=== PATIENT | female | born 1960 | race Caucasian/White ===

== ENCOUNTER → 2023-12-02 19:04 | Outpatient (REF) | payer OTHER, SELFPAY | LOC: WDC 19:04 | PROVIDERS: ATTENDING PHYSICIAN Physician Assistant | DX: Z12.31 Encounter for screening mammogram for malignant neoplasm of breast (principal) | CPT/HCPCS: 77063; 77067 ==

== ENCOUNTER 2024-01-11 09:46 | Emergency (ER) | payer OTHER, SELFPAY ==
[2024-01-11 09:50] VITALS: BP 144/92
[2024-01-11 10:49] VITALS: BP 130/82
[2024-01-11 11:00] VITALS: BP 149/91
[2024-01-11 11:43] LABS: Urine Albumin 1+ (Neg - Trace); Urine Bilirubin Negative (Negative); Urine Character Clear (Clear); Urine Color Yellow; Urine Glucose Negative (Negative); Urine Ketone 2+ (Negative); Urine Leukocyte Trace (Negative); Urine Nitrite Negative (Negative); Urine Occult Blood Negative (Negative); Urine Urobilinogen Negative (Neg - 1+)
[2024-01-11 11:44] LABS: % Basophils 0.4 % (0-2); % Eosinophils 0.3 % (0-6); % Immature Granulocytes 0.3 % (0-0.5); % Lymphocytes 13.2 % (20.5-51.1); % Monocytes 5.7 % (1.7-9.3); % Neutrophils 80.1 % (42.2-75.2); Absolute Basophils 0.1 10^3/uL (0-0.2); Absolute Lymphocytes 1.5 10^3/uL (1.2-3.4); Absolute Monocytes 0.7 10^3/uL (0.1-0.6); Absolute Neutrophils 9.4 10^3/uL (1.4-6.5); Hematocrit 43.8 % (37.0-47.0); Hemoglobin 14.9 g/dL (12.0-16.0); Mean Corpuscular Hgb 32.1 pg (27.0-31.0); Mean Corpuscular Volume 94.4 fL (81.0-99.0); Mean Platelet Volume 10.2 fL (7.4-10.4); Nucleated Red Blood Cells % 0 %; Platelet Count 224 10^3/uL (130-400); Red Blood Cell Count 4.64 10^6/uL (4.20-5.40); Red Cell Dist. Width 11.9 % (11.5-14.5); White Blood Cell Count 11.7 10^3/uL (4.8-10.8)
[2024-01-11] MEDS: BENTYL 20 MG IM (11:48)
[2024-01-11] MEDS: CITROMA 300 ML PO (11:48)
[2024-01-11 12:00] VITALS: BP 141/84
[2024-01-11 12:08] LABS: ALT (SGPT) 38 U/L (0-35); AST (SGOT) 44 U/L (14-36); Albumin 4.3 g/dl (3.5-5.0); Alkaline Phosphatase 89 U/L (38-126); Blood Urea Nitrogen 17 mg/dl (7-17); Calcium 9.7 mg/dl (8.4-10.2); Carbon Dioxide 23 mmol/L (22-30); Chloride 109 mmol/L (98-107); Glucose 98 mg/dl (70-99); Lipase 105 U/L (23-300); Potassium 3.6 mmol/L (3.5-5.1); Sodium 142 mmol/L (135-145); Total Bilirubin 0.8 mg/dl (0.2-1.3); Total Protein 6.9 g/dl (6.3-8.2); eGFR > 60.00
[2024-01-11 12:40] LABS: TSH Reflex To Free T4 1.77 uIU/ml (0.47-4.68)
[2024-01-11 12:52] LABS: Urine Mucus Many
[2024-01-11 12:53] LABS: Urine Granular Cast 0-2 /LPF (0)
[2024-01-11 12:54] LABS: Urine Red Blood Cell 0-2 /HPF (0-2); Urine White Cell 0-2 /HPF (0-5)
[2024-01-11 13:00] VITALS: BP 137/80
--- NOTE | 2024-01-11 13:08 | ED.GENMED ---
History of Present Illness
General
Chief Complaint: Bowel Problem
Source: patient and records
Exam Limitations: none
Time Seen by Provider: 01/11/24 10:56
Nursing documentation reviewed up to this point in time: agreed with
Travel History
Have you had any contact with someone who has COVID-19?: No
Do you have any symptoms of coronavirus? Fever > 100 degrees, chills, cough, shortness of breath, sore throat, loss of taste or smell, muscle aches, or headache?: No
History of Present Illness
History of Present Illness:
Patient is a 63-year-old female sent from her physician's office to the emergency department after being inadvertently found in atrial fibrillation. Patient went to him ostensibly because of a stomachache for 4 days that is getting worse and has
been constipated. Patient typically has no problems with constipation or diarrhea. Patient denies fever or chills. Patient took Dulcolax without any improvement. When the patient went to see her physician she was in atrial fibrillation with RVR.
Patient's been compliant with her anticoagulation. Patient denies chest pain, shortness of breath, lightheadedness or weakness. Patient denies any melena or hematochezia. Patient denies any symptoms.
Past History
Past History
ED Past Medical History: Arrthythmia (Atrial fibrillation), GERD, HTN, Hypercholesterolemia, IA and Other (pud)
ED Past Surgical History: None
Social History
Tobacco: Former smoker
Alcohol: Daily
Drug: None
Personal:
Living: with family
Employment: Employed
Review of Systems
Review of Systems
All Other Systems: ROS reviewed and negative except as documented in HPI and ROS
Constitutional: Reports no symptoms
EENT: Reports no symptoms
Respiratory: Reports no symptoms
Cardiac: Reports no symptoms
ABD/GI: Reports abdominal pain, constipated and anorexia; Denies nausea, vomiting or diarrhea
: Reports no symptoms
Musculoskeletal: Reports no symptoms
Skin: Reports no symptoms
Neurological: Reports no symptoms
Hematologic/Lymphatic: Reports no symptoms
Phy Exam
Physical Exam
Physical Exam:
Physical Exam
General: No apparent distress, alert and appropriate, well nourished, well hydrated
HENT: Normocephalic, supple with no lymphadenopathy, no thyromegaly
Eyes: Clear sclera, conjuctiva without injection
Heart: Regular rhythm and rate. No S3, S4. No murmur.
Lungs: No respiratory distress, no stridor, lung sounds clear and equal bilaterally
Abdomen: Soft, mild lower abdominal tenderness without guarding or rebound, no organomegaly, no CVA tenderness, BS good
Neuro: Alert and oriented x 3, CN II - XII intact, no motor focality, no cerebellar dysfunction
Skin: no rash
Psychiatric: well kept. interactive and cooperative
Extremities: No edema, cyanosis, tenderness, Good and equal peripheral pulses.
Scores
Heart Failure Risk
Heart Failure Risk Score: Not Applicable
Heart Score for Chest Pain Patients
STEMI patient?: Not applicable
Withdrawal Assessment of Alcohol
Withdrawal Assessment Completed?: Not applicable
Course
Orders/Labs/Results
Orders:
Orders
01/11/24 10:03
Electrocardiogram (*1) Urgent
Reason for Study: Atrial Fibrillation
EKG- Treatment ONCE
01/11/24 11:05
Magnesium Citrate [Citroma] 300 ml PO ONCE ONE
CR Abdomen - 1 View Urgent
Comment:
Reason For Exam: lower abd pain constipation
01/11/24 11:35
Complete Blood Count/With Diff Urgent
Comprehensive Metabolic Panel Urgent
Lipase Urgent
TSH Reflex To Free T4 Urgent
Urinalysis Reflex To Culture Urgent
Date Specimen was Collected: 01/11/24
Time Specimen was Collected: 11:34
Urine Microscopic Reflex Cult Urgent
01/11/24 11:38
Dicyclomine HCl [Bentyl] 20 mg IM NOW STA
Abnormal Lab Results
01/11/24
11:35
WBC 11.7 H 10^3/uL
(4.8-10.8)
MCH 32.1 H pg
(27.0-31.0)
Absolute Neuts (auto) 9.4 H 10^3/uL
(1.4-6.5)
Absolute Monos (auto) 0.7 H 10^3/uL
(0.1-0.6)
Neutrophils % 80.1 H %
(42.2-75.2)
Lymphocytes % 13.2 L %
(20.5-51.1)
Chloride 109 H mmol/L
(98-107)
Creatinine 0.5 L mg/dL
(0.6-1.0)
AST 44 H U/L
(14-36)
ALT 38 H U/L
(0-35)
Urine Ketones 2+ A
(Negative)
Leukocyte Esterase Rfl Trace A
(Negative)
Urine Albumin (Reflex) 1+ A
(Neg - Trace)
01/11/24 11:35
01/11/24 11:35
Vital Signs
Initial and Last Documented VS:
Initial Vital Signs
Temp Pulse Resp BP Pulse Ox
98.6 F 83 18 144/92 99
01/11/24 09:50 01/11/24 09:50 01/11/24 09:50 01/11/24 09:50 01/11/24 09:50
Last Documented Vital Signs
Temp Pulse Resp BP Pulse Ox
98.6 F 81 19 141/84 94
01/11/24 09:50 01/11/24 12:15 01/11/24 12:15 01/11/24 12:00 01/11/24 12:15
*Radiology
Radiology exam reviewed: radiology read reviewed
*Pulse Oximetry
Patient hypoxic: no
*EKG
Interpreted by ED Provider?: Yes
EKG Intrepretation Date: 01/11/24
EKG Intrepretation Time: 13:14
Interpretation: abnormal
Comparison EKG: changes noted
Heart Rate: 154
Rate: tachycardiac
Rhythm: a-fib
[place]: normal axis
Interval: normal QT interval
QRS Pattern: normal QRS
Ischemia: non-specific ST changes
*[employer]er Interpretation
Rate: normal
Interpretation: normal
Heart Rate: 85
Rhythm: sinus
*Critical Care Note
Total Time (30-74mins, 75-104mins- exclusive of procedures): Not Applicable
Update Note
Update Note:
Patient spontaneously converted to normal sinus rhythm as I went into the room to examine her. Reviewed the patient's x-rays and findings. Patient will be given a prescription for Bentyl along with MiraLAX/Metamucil
ED Attending Note
-
Portions of this chart may have been created with voice recognition software.� Occasional wrong word or��sound alike� substitutions may have occurred due to the inherent limitations of voice recognition software.
Discharge Plan
Departure
Patient Disposition: Home (Routine Discharge)
Date of Disposition: 01/11/24
Time of Disposition: 13:14
Patient with high blood pressure during this ER visit?: No
Condition: Good
Covid-19: Not Applicable
Discharge Problem:
Atrial fibrillation with RVR, Spontaneous atrial fibrillation conversi, Nonspecific abdominal pain
Instructions: Constipation, Adult (DC), Abdominal Pain
Prescriptions:
New
Metamucil Fiber Singles 3.4 gram powder in packet
3.4 g PO DAILY Qty: 30 0RF
polyethylene glycol 3350 [Miralax] 17 gram powder in packet
17 g PO DAILY Qty: 30 0RF
dicyclomine 10 mg capsule
10 mg PO QID PRN (Reason: abdominal pain) Qty: 30 0RF
No Action
triamcinolone acetonide [Nasacort] 10.8 ML aerosol,spray
10.8 ml inhalation HS
atorvastatin 80 MG tablet
80 mg PO QPM Qty: 30 2RF
clopidogrel 75 MG tablet
75 mg PO DAILY Qty: 90 3RF
pantoprazole 40 MG tablet,delayed release (DR/EC)
40 mg PO DAILY Qty: 30 2RF
aspirin 81 MG tablet,chewable
81 mg PO DAILY 0RF
Rx Instructions:
take once daily until 05/15/2021 then stop
metoprolol succinate 25 MG tablet extended release 24 hr
25 mg PO BID Qty: 60 2RF
apixaban [Eliquis] 5 MG tablet
5 mg PO BID Qty: 60 2RF
nitroglycerin 0.4 MG tablet, sublingual
0.4 mg sublingual [id number] PRN (Reason: chest pain, sob) Qty: 25 2RF
Referrals:
Talat Becerra MD [Family Provider] - Follow up in 5-7 days
Activity Restrictions/Additional Instructions:
Continue present medications and therapy. Increase the fiber in your diet.
Interventions
Interventions:
*ED COVID-19 Vaccine History Last Done: 01/11/24 10:00
AC-Ijqxrb-Qphumdykvr Assessment Last Done: 01/11/24 11:51
Discharge Date and Time
Print Language: SETSWANA
== END 2024-01-11 13:46 | disposition home or self-care (01) ==
LOC: EMR 09:46
PROVIDERS: EMERGENCY PHYSICIAN Emergency Medicine; FAMILY PHYSICIAN Family Medicine
DX: I48.91 Unspecified atrial fibrillation (principal); R10.30 Lower abdominal pain, unspecified; K59.00 Constipation, unspecified; K21.9 Gastro-esophageal reflux disease without esophagitis; I10 Essential (primary) hypertension; E78.00 Pure hypercholesterolemia, unspecified; B02.9 Zoster without complications; F32.A Depression, unspecified; I25.2 Old myocardial infarction; Z95.5 Presence of coronary angioplasty implant and graft; Z87.891 Personal history of nicotine dependence; Z87.11 Personal history of peptic ulcer disease; Z79.01 Long term (current) use of anticoagulants; Z88.0 Allergy status to penicillin
CPT/HCPCS: 99284; 96372; 74018; 80053; 81003; 81015; 83690; 84443; 85025; 93005

== ENCOUNTER → 2024-10-25 14:53 | Outpatient (REF) | payer OTHER, SELFPAY | LOC: RAD 14:53 | PROVIDERS: ATTENDING PHYSICIAN Family Medicine | DX: M25.562 Pain in left knee (principal) | CPT/HCPCS: 73564 ==